=== PATIENT | female | born 1955 | race African-American/Black ===

== ENCOUNTER 2020-02-21 00:16 | Outpatient (CLI) | payer OTHER, SELFPAY ==
[2020-02-21 17:43] LABS: SARS-CoV-2 RNA PCR Negative
== END 2020-02-21 00:17 | disposition home or self-care (01) ==
LOC: ANHCOVIDDT 00:16
PROVIDERS: PCP Family Medicine; Visit Provider Internal Medicine Gastroenterology
DX: Z01.818 Encounter for other preprocedural examination (principal); Z11.59 Encounter for screening for other viral diseases
CPT/HCPCS: 87635; C9803; U0003

== ENCOUNTER 2020-02-23 00:48 | Day surgery (SDC) | payer OTHER, SELFPAY ==
[2020-02-16 12:58] VITALS: BMI 38.8
[2020-02-23 06:20] VITALS: BMI 12.9
[2020-02-23 06:27] VITALS: BP 140/74; PULSE 68; RESP 20; TEMP 36.3; O2SAT 100
[2020-02-23] MEDS: LACTATED RINGERS 1,000 ML 150 ML IV CONT (06:50)
[2020-02-23] MEDS: AMPICILLIN 2 GM/NS 100 ML 2 GM/100 ML BAG IVPB (06:51)
--- NOTE | 2020-02-23 06:55 | P.PNAN_ITS ---
Anes - Initial Pre Proc Eval Procedure: Operation Date: 02/23/20 07:30 Proposed Procedures p Screening Colonoscopy - Nash Guardado MD Date/Time: 02/23/20 06:55 Surgeon: Nash Guardado MD Pre Op Diagnosis: Neoplasm Screening Patient Data Age: 64 Gender: F Height: 1.73 m Weight: 38.8 kg Last Vital Signs Temp 36.3 C L 02/23/20 06:27 Pulse 68 02/23/20 06:27 Resp 20 02/23/20 06:27 BP 140/74 02/23/20 06:27 Pulse Ox 100 02/23/20 06:27 Allergies Allergy/AdvReac Type Severity Reaction Status Date / Time olmesartan Allergy Intermediate Chills Verified 02/23/20 06:24 metronidazole AdvReac Severe GI Verified 02/23/20 06:24 UPSET---N/V METRONIDAZOLE HCL AdvReac Severe GI Uncoded 02/23/20 06:24 UPSET--N/V Home Medications Medication Instructions Recorded Confirmed Type acetaminophen [Tylenol] 325 mg PO ONCE PRN 02/16/20 02/23/20 History amlodipine 10 mg PO DAILY 02/16/20 02/23/20 History baclofen 10 mg PO TID PRN 02/16/20 02/23/20 History ergocalciferol (vitamin D2) 1,250 mcg PO [id number] 02/16/20 02/23/20 History nebivolol [Bystolic] 5 mg PO DAILY 02/16/20 02/23/20 History Patient hx anesthesia problems: none Family hx anesthesia problems: none [facility] Family History Family History (Updated 05/17/14 @ 07:13 by DOCTOR UNKNOWN) Grandparent Hypertension Mother Hypertension Family history of osteoarthritis Social History Social History Smoking status: Never smoker Alcohol intake: current Anes - Eval Final PreProcedure Day of Procedure 02/23/20 06:55 Informed Consent: The patient's anesthetic plan and its attendant risks and benefits were discussed with the patient/family/POA. Questions were solicited and answers provided to the satisfaction of the patient/family/POA.
--- NOTE | 2020-02-23 06:59 | P.HP_ITS ---
History of Present Illness History of Present Illness Consent: Risks, benefits, and alternatives have been discussed and questions answered. Patient agrees to proceed with procedure. Chief complaint: Neoplasm Screening Narrative: Eduin Olivera is a 64 year old female Here for colon cancer screening. She has had polyps removed in the past [facility] Family History Family History Grandparent Hypertension Mother Hypertension Family history of osteoarthritis Social History Social History Smoking status: Never smoker Alcohol intake: current Meds Home Medications and Allergies Home Medications Medication Instructions Recorded Confirmed Type acetaminophen [Tylenol] 325 mg PO ONCE PRN 02/16/20 02/23/20 History amlodipine 10 mg PO DAILY 02/16/20 02/23/20 History baclofen 10 mg PO TID PRN 02/16/20 02/23/20 History ergocalciferol (vitamin D2) 1,250 mcg PO [id number] 02/16/20 02/23/20 History nebivolol [Bystolic] 5 mg PO DAILY 02/16/20 02/23/20 History Allergies Allergy/AdvReac Type Severity Reaction Status Date / Time olmesartan Allergy Intermediate Chills Verified 02/23/20 06:24 metronidazole AdvReac Severe GI Verified 02/23/20 06:24 UPSET---N/V METRONIDAZOLE HCL AdvReac Severe GI Uncoded 02/23/20 06:24 UPSET--N/V Vital Signs Vital Signs - 24 hr 02/23/20 06:27 Temperature 36.3 C L Pulse Rate 68 Respiratory Rate 20 Blood Pressure 140/74 Pulse Oximetry 100 Exam Resp: Auscultation: clear to auscultation bilaterally Cardio: Rate: regular rate Rhythm: regular rhythm GI: GI Palp: Yes Soft to palpation and No Tenderness to palpation present (GI) Assessment and Plan Assessment and plan (1) Personal history of colonic polyps: Code(s): Z86.010 - Personal history of colonic polyps Status: Acute Assessment and Plan: Colonoscopy with possible biopsy or polypectomy or cautery or injection of substances.
[2020-02-23 07:49] VITALS: BP 96/54; PULSE 69; RESP 22; O2SAT 100
[2020-02-23 07:59] VITALS: BP 94/57; PULSE 65; RESP 21; O2SAT 98
[2020-02-23 08:09] VITALS: BP 109/61; PULSE 65; RESP 19; O2SAT 99
== END 2020-02-23 08:22 | disposition home or self-care (01) ==
PROVIDERS: PCP Family Medicine; Visit Provider Internal Medicine Gastroenterology
PROC: 0DJD8ZZ Inspection of Lower Intestinal Tract, Via Natural or Artificial Opening Endoscopic (ICD-10-PCS; CPT 45378; principal; 2020-02-23 07:30)
DX: Z12.11 Encounter for screening for malignant neoplasm of colon (principal); K57.30 Diverticulosis of large intestine without perforation or abscess without bleeding; Z86.010 Personal history of colon polyps
CPT/HCPCS: 45378; J0290; J2001; J2704; J7120

== ENCOUNTER 2020-10-30 14:19 | Outpatient (CLI) | payer OTHER, SELFPAY ==
--- NOTE | ~2020-10-30 | MM_ITS ---
EXAMINATION: MM screening [facility] BI w meño HISTORY: Screening mammogram TECHNIQUE: Craniocaudal and mediolateral oblique 3-D tomosynthesis images were obtained and synthetic 2-D images were generated. CAD analysis was submitted and interpreted. COMPARISON: 09/02/2019, 07/21/2018, 07/13/2017, 06/19/2014 bilateral digital screening mammogram examin ations BREAST PARENCHYMAL COMPOSITION: There are scattered areas of fibroglandular density. FINDINGS: There is a biopsy marker on the left; history of prior benign left breast biopsy. There is no evidence of suspicious mass, calcification, or architectural distortion to suggest malignancy in e ither breast. There has been no suspicious interval change. IMPRESSION: 1. No mammographic evidence of malignancy. 2. Recommend routine screening mammography in one year. BI-RADS Category 1: Negative Reviewed, dictated and finalized at location A. R TENDER
== END 2020-10-30 14:20 | disposition home or self-care (01) ==
LOC: ANHIMG 14:21
PROVIDERS: Family Provider Family Medicine; PCP Family Medicine; Visit Provider Obstetrics & Gynecology
DX: Z12.31 Encounter for screening mammogram for malignant neoplasm of breast (principal)
CPT/HCPCS: 77063; 77067

== ENCOUNTER 2020-11-16 07:11 | Outpatient (CLI) | payer OTHER, SELFPAY ==
[2020-11-16 07:53] LABS: Hematocrit 37.9 % (37.0-47.0); Hemoglobin 11.5 g/dL (12.0-15.0); Mean Corpuscular HGB Conc 30.3 g/dl (32-36); Mean Corpuscular Hemoglobin 27.7 pg (26-34); Mean Corpuscular Volume 91.3 fl (80-100); Mean Platelet Volume 10.2 fl (7.4-10.4); Platelet Count Result 270 k/mm3 (150-375); Red Blood Count 4.15 M/mm3 (4.2-5.4); Red Cell Distribution Width 13.1 % (11.5-14.5); White Blood Count 6.3 K/mm3 (4.5-10.0)
[2020-11-16 08:03] LABS: Anion Gap 5 mmol/L (8-16); Blood Urea Nitrogen 20 mg/dL (7-17); Calcium 8.9 mg/dL (8.4-10.2); Carbon Dioxide 27 mmol/L (22-30); Chloride 111 mmol/L (98-107); Cholesterol 198 mg/dL (0-200); Estimated Glomerular Filt Rate 46; Glucose 111 mg/dL (65-105); HDL Direct 46 mg/dL; Potassium 4.8 mmol/L (3.4-5.0); Sodium 143 mmol/L (137-145); Triglycerides 108 mg/dL (<150)
[2020-11-16 08:14] LABS: LDL Cholesterol Direct 105 mg/dL
[2020-11-16 08:37] LABS: Vitamin D 25 Hydroxy 35.1 ng/mL
== END 2020-11-16 07:12 | disposition home or self-care (01) ==
LOC: ANHLAB 07:13
PROVIDERS: PCP Family Medicine; Visit Provider Family Medicine
DX: N18.31 Chronic kidney disease, stage 3a (principal); E55.9 Vitamin D deficiency, unspecified; E78.2 Mixed hyperlipidemia; Z13.220 Encounter for screening for lipoid disorders
CPT/HCPCS: 36415; 80048; 80061; 82306; 85027

== ENCOUNTER 2020-12-21 06:54 | Outpatient (CLI) | payer OTHER, SELFPAY ==
[2020-12-21 07:32] LABS: Anion Gap 6 mmol/L (8-16); Blood Urea Nitrogen 20 mg/dL (7-17); Calcium 9.4 mg/dL (8.4-10.2); Carbon Dioxide 28 mmol/L (22-30); Chloride 110 mmol/L (98-107); Estimated Glomerular Filt Rate 55; Glucose 104 mg/dL (65-105); Hematocrit 38.1 % (37.0-47.0); Hemoglobin 11.7 g/dL (12.0-15.0); Mean Corpuscular HGB Conc 30.7 g/dl (32-36); Mean Corpuscular Hemoglobin 27.9 pg (26-34); Mean Corpuscular Volume 90.9 fl (80-100); Mean Platelet Volume 10.5 fl (7.4-10.4); Platelet Count Result 268 k/mm3 (150-375); Potassium 3.9 mmol/L (3.4-5.0); Red Blood Count 4.19 M/mm3 (4.2-5.4); Sodium 144 mmol/L (137-145); White Blood Count 6.8 K/mm3 (4.5-10.0)
[2020-12-21 07:37] LABS: Hemoglobin A1C 5.3 % (<5.7)
== END 2020-12-21 06:55 | disposition home or self-care (01) ==
PROVIDERS: PCP Family Medicine; Visit Provider Physician Assistant Medical
DX: R73.09 Other abnormal glucose (principal); N18.31 Chronic kidney disease, stage 3a; D64.9 Anemia, unspecified
CPT/HCPCS: 36415; 80048; 83036; 85027

== ENCOUNTER 2020-12-25 14:03 | Outpatient (CLI) | payer OTHER, SELFPAY ==
[2020-12-25 15:55] LABS: Iron 48 ug/dL (37-170)
[2020-12-25 16:04] LABS: Percent Iron Saturation 20 % (20-50)
== END 2020-12-25 14:04 | disposition home or self-care (01) ==
PROVIDERS: PCP Family Medicine; Visit Provider Physician Assistant Medical
DX: D64.9 Anemia, unspecified (principal)
CPT/HCPCS: 36415; 83540; 83550

== ENCOUNTER 2021-02-19 09:11 | Outpatient (CLI) | payer OTHER, SELFPAY ==
[2021-02-19 10:50] LABS: Erythrocyte Sedimentation Rate 22 mm/hr (0-20)
== END 2021-02-19 09:12 | disposition home or self-care (01) ==
PROVIDERS: PCP Family Medicine; Visit Provider Family Medicine
DX: M47.12 Other spondylosis with myelopathy, cervical region (principal)
CPT/HCPCS: 36415; 85652; 86038; 86140

== ENCOUNTER 2021-02-25 10:30 | Outpatient (CLI) | payer OTHER, SELFPAY ==
[2021-02-25 11:27] LABS: Rheumatoid Factor < 8.6 IU/ML (<12)
== END 2021-02-25 10:31 | disposition home or self-care (01) ==
PROVIDERS: PCP Family Medicine; Visit Provider Family Medicine
DX: M19.90 Unspecified osteoarthritis, unspecified site (principal)
CPT/HCPCS: 36415; 86430

== ENCOUNTER 2021-03-10 10:15 | Emergency (ER) | payer OTHER, SELFPAY ==
[2021-03-10 10:25] VITALS: BP 149/77; PULSE 69; RESP 16; TEMP 36; O2SAT 98
--- NOTE | 2021-03-10 10:46 | ED.URI ---
HPI - URI/Sore Throat General Chief Complaint: Upper Respiratory Infection Stated Complaint: Headache,Dizzy Time Seen by Provider: 03/10/21 10:37 Source: patient and RN notes reviewed Mode of arrival: ambulatory Limitations: no limitations History of Present Illness HPI Narrative: 65-year-old female presents to the [facility] with complaints of temporal/ frontal headache, intermittent dizziness for the last week. States it sometimes feels like her head is swimming. Reports fullness to bilateral ears. Drainage in the back of her throat. Moves all extremities equally. Facial symmetry noted. Denies fevers. Has a history of chronic back pain, hypertension, vitamin D deficiency, seasonal allergies Related Data Home Medications Medication Instructions Recorded Confirmed acetaminophen [Tylenol] 325 mg PO ONCE PRN 02/16/20 03/10/21 cholecalciferol (vitamin D3) 1,250 1,250 mcg PO .every 2 weeks cap 11/11/20 03/10/21 mcg (50,000 unit) capsule Allergies Allergy/AdvReac Type Severity Reaction Status Date / Time olmesartan Allergy Intermediate Chills Verified 03/10/21 10:46 metronidazole AdvReac Severe GI Verified 03/10/21 10:46 UPSET---N/V Review of Systems Review of Systems: All systems reviewed & are unremarkable except as noted in HPI and below Constitutional: Constitutional: Reports no additional constitutional complaints, Denies chills and Denies fever(s) Eyes: Eyes: Reports as per HPI, Reports change in vision (Intermittent blurry vision for 1 week) and Denies photophobia ENT: Reports as per HPI, Denies dizziness and Reports nasal congestion Cardiovascular: Cardiovascular: Reports no additional cardiovascular complaints and Denies chest pain Respiratory: Respiratory: Reports no additional respiratory complaints, Reports cough and Denies dyspnea Gastrointestinal: Gastrointestinal: Reports no additional gastrointestinal complaints, Denies abdominal pain, Denies nausea and Denies vomiting Musculoskeletal: Musculoskeletal: Reports no additional musculoskeletal complaints, Denies back pain, Denies myalgias and Denies arthralgias Integumentary/Breasts: Skin/Breast: Reports system reviewed and no additional complaints, except as docu and Denies rash Neurologic: Reports as per HPI, Denies dizziness, Denies syncope, Reports headache(s), Denies focal weakness and Denies numbness Psychiatric: Psychiatric: Reports no additional psychiatric complaints Allergic/Immunologic: Allergic/Immunologic: Reports no additional allergic/immunologic complaints, Denies lip swelling, Denies throat swelling, Denies tongue swelling and Denies wheezing PMFSH Past Medical History Medical History (Updated 03/10/21 @ 15:56 by Steffanie Mc) Anemia BMI 37.0-37.9, adult Hypertension Inflammatory arthritis Vitamin D deficiency Family History Family History Grandparent Hypertension Mother Hypertension Family history of osteoarthritis Social History Social History Alcohol intake: current Comments At the time of my signature, I reviewed and agree with the nursing past medical, surgical, social, and family history. There is no relevant family history pertinent to the patient complaint. Exam Const: General: healthy appearing, no acute distress and alert; No confusion Nutritional Appearance: well nourished and obese Orientation/consciousness: patient oriented x3 Limitations: no limitations HENMT: Head: normal to inspection Ears: hearing grossly normal bilaterally, external ears normal, EAC's normal, mastoids normal, no periauricular adenopathy and TM abnormal with fluid behind the TM bilateral; not erythematous and with no loss of landmarks General nose exam: Normal external nose present and Abnormal mucous membranes and turbinates present boggy; not erythematous Face and sinus: normal facial exam, face symmetric and sinus tendern
== END 2021-03-10 11:01 | disposition home or self-care (01) ==
PROVIDERS: Emergency Provider Nurse Practitioner; PCP Family Medicine
DX: H65.03 Acute serous otitis media, bilateral (principal); I10 Essential (primary) hypertension
CPT/HCPCS: 99213; G0463

== ENCOUNTER 2021-03-19 13:18 | Outpatient (CLI) | payer OTHER, SELFPAY ==
[2021-03-19 14:03] LABS: Basophils Percent Auto 0.5 % (0.2-1.2); Eosinophils Absolute Auto 0.1 K/mm3 (0-0.3); Eosinophils Percent Auto 1.5 % (0-4.4); Hematocrit 39.3 % (37.0-47.0); Immature Granulocyte Absolute 0.07 K/mm3 (0.00-0.031); Immature Granulocyte Percent A 0.8 % (0-0.5); Lymphocytes Absolute Auto 2.45 K/mm3 (0.9-3.2); Lymphocytes Percent Auto 29.1 % (18.3-44.2); Mean Corpuscular HGB Conc 30.5 g/dl (32-36); Mean Corpuscular Hemoglobin 27.9 pg (26-34); Mean Corpuscular Volume 91.4 fl (80-100); Mean Platelet Volume 9.8 fl (7.4-10.4); Monocytes Absolute Auto 0.6 K/mm3 (0.1-0.6); Monocytes Percent Auto 7.5 % (2.6-8.5); Neutrophils Absolute Auto 5.1 K/mm3 (1.3-6.7); Neutrophils Percent Auto 60.6 % (45.5-73.1); Platelet Count Result 295 k/mm3 (150-375); Red Cell Distribution Width 13.8 % (11.5-14.5); White Blood Count 8.4 K/mm3 (4.5-10.0)
[2021-03-19 14:32] LABS: Iron 88 ug/dL (37-170)
[2021-03-19 14:41] LABS: Percent Iron Saturation 36 % (20-50)
== END 2021-03-19 13:19 | disposition home or self-care (01) ==
LOC: ANHLAB 13:20
PROVIDERS: PCP Family Medicine; Visit Provider Nurse Practitioner Family
DX: D64.9 Anemia, unspecified (principal)
CPT/HCPCS: 36415; 82728; 83540; 83550; 85025

== ENCOUNTER 2021-07-09 11:56 | Outpatient (CLI) | payer OTHER, SELFPAY ==
--- NOTE | ~2021-07-09 | XR_ITS ---
EXAMINATION: XR lumbar spine 2-3V DATE: 07/09/2021 12:32 INDICATION: Lumbar radiculopathy TECHNIQUE: Anteroposterior and lateral views of the lumbar spine, and cone-down lateral view of the l umbosacral junction were obtained. COMPARISON: MRI, 12/19/2015 FINDINGS: There is no fracture, dislocation, or subluxation. The vertebral body heights are normal. T here is mild loss of intervertebral disc space height at L3-4, L4-5, and L5-S1. Small degenerative os teophytes project from the anterior endplates of multiple vertebral bodies. IMPRESSION: 1. Mild lumbar spondylosis without acute findings or significant interval change. Reviewed, dictated and finalized at location A. IMPRESSION: 1. Mild lumbar spondylosis without acute findings or significant interval sherri bauer
--- NOTE | ~2021-07-09 | XR_ITS ---
EXAMINATION:XR_CERV2-3V_CR DATE: 07/09/2021 12:32 INDICATION: Neck pain TECHNIQUE: AP, lateral, and odontoid views of the cervical spine are provided. COMPARISON: 06/09/2017 FINDINGS: Alignment is normal. There is reversal of normal cervical lordosis. The odontoid is intact. No fracture is identified. The vertebral body heights are normal. There is moderate to severe loss o f intervertebral disc space height at C3-4 and C4-5. Prevertebral soft tissues are normal. IMPRESSION: 1. Moderate cervical spondylosis without acute findings or significant interval change. Reviewed, dictated and finalized at location A.
== END 2021-07-09 11:57 | disposition home or self-care (01) ==
LOC: ANHIMG 12:08
PROVIDERS: PCP Family Medicine; Visit Provider Nurse Practitioner Family
DX: M51.36 Other intervertebral disc degeneration, lumbar region (principal); M47.817 Spondylosis without myelopathy or radiculopathy, lumbosacral region; M47.812 Spondylosis without myelopathy or radiculopathy, cervical region
CPT/HCPCS: 72040; 72100

== ENCOUNTER 2021-12-24 13:38 | Outpatient (CLI) | payer MEDICARE, SELFPAY ==
--- NOTE | ~2021-12-24 | MM_ITS ---
EXAMINATION: MM screening [facility] BI w meño HISTORY: Screening TECHNIQUE: Craniocaudal and mediolateral oblique 3-D tomosynthesis images were obtained and synthetic 2-D images were generated. CAD analysis was submitted and interpreted. COMPARISON: Comparison to multiple prior studies sequentially, with oldest reviewed study dated 05/2015. BREAST PARENCHYMAL COMPOSITION: There are scattered areas of fibroglandular density. FINDINGS: There is no evidence of suspicious mass, calcification, or architectural distortion to sugg est malignancy in either breast. There has been no suspicious interval change. IMPRESSION: 1. No mammographic evidence of malignancy. 2. Recommend routine screening mammography in one year. BI-RADS Category 1: Negative Reviewed, dictated and finalized at location A.
== END 2021-12-24 13:39 | disposition home or self-care (01) ==
LOC: ANHIMG 13:41
PROVIDERS: PCP Family Medicine; Visit Provider Obstetrics & Gynecology Gynecology
DX: Z12.31 Encounter for screening mammogram for malignant neoplasm of breast (principal)
CPT/HCPCS: 77063; 77067

== ENCOUNTER 2023-07-27 17:28 | Outpatient (CLI) | payer MEDICARE, SELFPAY ==
--- NOTE | ~2023-07-27 | XR_ITS ---
Right Knee Technique: AP, lateral, and sunrise views were obtained. Clinical History: Pain Findings: No fracture or dislocation is seen. Right knee arthroplasty is in place, without hardware c omplication.. Soft tissues are unremarkable. No joint effusion is seen. Impression: No acute abnormality. Right knee arthroplasty in place. Reviewed, dictated and finalized at location M. AL MACHINE OPERATOR Impression: No acute abnormality. Right knee arthroplasty in place.
[2023-07-27 17:47] LABS: Basophils Absolute Auto 0.1 K/mm3 (0.0-0.1); Basophils Percent Auto 0.8 % (0.2-1.2); Eosinophils Absolute Auto 0.2 K/mm3 (0-0.3); Eosinophils Percent Auto 3.2 % (0-4.4); Hematocrit 38.4 % (37.0-47.0); Hemoglobin 11.4 g/dL (12.0-15.0); Immature Granulocyte Absolute 0.03 K/mm3 (0.00-0.031); Immature Granulocyte Percent A 0.4 % (0-0.5); Lymphocytes Absolute Auto 2.61 K/mm3 (0.9-3.2); Lymphocytes Percent Auto 34.7 % (18.3-44.2); Mean Corpuscular HGB Conc 29.7 g/dl (32-36); Mean Corpuscular Volume 94.3 fl (80-100); Mean Platelet Volume 10.2 fl (7.4-10.4); Monocytes Absolute Auto 0.5 K/mm3 (0.1-0.6); Monocytes Percent Auto 6.3 % (2.6-8.5); Neutrophils Absolute Auto 4.1 K/mm3 (1.3-6.7); Neutrophils Percent Auto 54.6 % (45.5-73.1); Platelet Count Result 256 k/mm3 (150-375); Red Blood Count 4.07 M/mm3 (4.2-5.4); Red Cell Distribution Width 12.8 % (11.5-14.5); White Blood Count 7.5 K/mm3 (4.5-10.0)
[2023-07-27 18:04] LABS: Hypochromasia 1+ (NORMAL); Platelet Estimate Adequate (Adequate); Schistocytes None Seen (NORMAL); Stomatocytes 1+ (NORMAL)
[2023-07-27 18:46] LABS: Iron 76 ug/dL (37-170)
[2023-07-27 18:55] LABS: Percent Iron Saturation 34 % (20-50)
[2023-07-27 18:56] LABS: Vitamin D 25 Hydroxy 27.4 ng/mL
== END 2023-07-27 17:29 | disposition home or self-care (01) ==
PROVIDERS: PCP Family Medicine; Visit Provider Family Medicine
DX: D50.8 Other iron deficiency anemias (principal); R79.89 Other specified abnormal findings of blood chemistry; Z96.651 Presence of right artificial knee joint
CPT/HCPCS: 36415; 73564; 82306; 82607; 83540; 83550; 85025

== ENCOUNTER 2023-12-08 09:52 | Emergency (ER) | payer MEDICARE, SELFPAY ==
[2023-12-08 10:10] VITALS: BP 151/85; PULSE 71; RESP 18; TEMP 36.2; O2SAT 100
--- NOTE | 2023-12-08 10:37 | ED.URI ---
HPI - URI/Sore Throat General Chief Complaint: Upper Respiratory Infection Stated Complaint: Dizziness/Sinus Time Seen by Provider: 12/08/23 10:37 Source: patient Mode of arrival: ambulatory Limitations: no limitations History of Present Illness HPI Narrative: 68-year-old female presents with complaint of sinus pressure around top of nose and under eyes, nasal congestion, nasal drainage for 3 days. Afebrile. Started taking Sudafed to treat congestion yesterday. Reports that she is having nausea and dizziness lasting just a few seconds when standing. No vision changes. Denies nausea vomiting. Denies cough. No chest pain or shortness of breath. All systems reviewed and negative except as noted above. Related Data Allergies Allergy/AdvReac Type Severity Reaction Status Date / Time olmesartan Allergy Intermediate Chills Verified 12/08/23 10:10 metronidazole AdvReac Severe GI Verified 12/08/23 10:10 UPSET---N/V Review of Systems Review of Systems: CONSTITUTIONAL: Denies fever, chills, or sweats. EYES: Denies visual changes, redness, or discharge. ENT: Reports rhinorrhea, congestion, sinus pressure. Denies sore throat, or otalgia. CARDIOVASCULAR: Denies chest pain, palpitations, or edema. RESPIRATORY: Denies cough or dyspnea. GASTROINTESTINAL: Denies abdominal pain, nausea, vomiting, or diarrhea. GENITOURINARY: Denies dysuria or hematuria. SKIN: Denies rash or itching. MUSCULOSKELETAL: Denies back pain, joint pain, or myalgia. NEUROLOGIC: Denies headache, numbness, or weakness. reports dizziness Sometimes when standing lasting few seconds. PSYCHIATRIC: Denies anxiety or depression. All other systems reviewed are negative, except as documented in HPI. [facility] Past Medical History Medical History (Updated 12/08/23 @ 10:46 by Alanis Hansen NP) Anemia BMI 37.0-37.9, adult BMI 38.0-38.9,adult BMI 39.0-39.9,adult BMI 40.0-44.9, adult BMI over 35 Foot pain, left Hypertension Inflammatory arthritis Low vitamin D level Right knee pain Right lateral epicondylitis Shoulder impingement Trapezius muscle spasm Vitamin D deficiency Surgical History Surgical History H/O knee surgery H/O: hysterectomy Family History Family History Grandparent Hypertension Mother Hypertension Family history of osteoarthritis Father Sibling No problems noted. Social History Social History Smoking status: Never smoker Second hand tobacco smoke exposure: Yes Alcohol intake: current Substance use: never Substance use type: does not use Lack of Transportation: YES Lack of Food: Never True Current Housing: I Have Housing Concerned About Future Housing: No Difficulty Paying Gas/Electric Bills: No Difficulty Paying for Meds: No Currently Unemployed: No Education: High School Diploma/GED Difficulty w/ Childcare or Family Care: No Living arrangements: alone Occupation/Education: retired Additional occupation/education comments: [id number] 27 years. Gender identity (if verbalized by the patient): Female Comments At time of signature, agree with nursing past medical, surgical, social and family history. There is no relevant family history pertinent to the presenting complaint. Exam Narrative: GENERAL: This is a well-nourished, well-developed patient, in no apparent distress. HEAD: normocephalic, atraumatic. EYES: PERRL. Sclera clear/white. Vision is grossly intact. EARS: External ears normal, auditory canals clear and without drainage, Clear fluid to right TM, left TM normal without Erythema or perforation. Hearing grossly intact. NOSE: External nose normal with clear nasal drainage, mild erythema and swelling to bilateral nares with mild nasal/ Sinus congestion. THROAT: Mucous membranes moist,
== END 2023-12-08 10:55 | disposition home or self-care (01) ==
PROVIDERS: Emergency Provider Nurse Practitioner Family; PCP Family Medicine
DX: J01.90 Acute sinusitis, unspecified (principal); H65.01 Acute serous otitis media, right ear; I10 Essential (primary) hypertension; M13.80 Other specified arthritis, unspecified site
CPT/HCPCS: 99213; G0463

== ENCOUNTER 2024-07-04 11:38 | Outpatient (CLI) | payer MEDICARE, SELFPAY ==
--- NOTE | ~2024-07-04 | XR_ITS ---
AP and lateral views of the bilateral hips Clinical history: Pain Findings: No acute fracture or dislocation is seen. Osseous alignment is anatomic. Bilateral hip and SI joint spaces are preserved. Soft tissues are unremarkable. Impression: No significant abnormality is seen. Reviewed, dictated and finalized at location . Impression: No significant abnormality is seen.
== END 2024-07-04 11:39 | disposition home or self-care (01) ==
LOC: ANHIMG 11:43
PROVIDERS: PCP Family Medicine; Visit Provider Family Medicine
DX: M25.551 Pain in right hip (principal); M25.552 Pain in left hip
CPT/HCPCS: 73521

== ENCOUNTER 2024-07-31 10:46 | Outpatient (CLI) | payer MEDICARE, SELFPAY ==
[2024-08-04 14:32] LABS: Erythropoietin (EPO) 14.2 mIU/mL (2.6-18.5)
== END 2024-07-31 10:47 | disposition home or self-care (01) ==
LOC: ANHLAB 10:48
PROVIDERS: PCP Family Medicine; Visit Provider Nurse Practitioner Adult Health
DX: D50.8 Other iron deficiency anemias (principal); R79.89 Other specified abnormal findings of blood chemistry; N18.31 Chronic kidney disease, stage 3a
CPT/HCPCS: 36415; 82668; 82728

== ENCOUNTER 2024-11-21 10:37 | Outpatient (CLI) | payer MEDICARE, SELFPAY ==
[2024-11-21 10:58] LABS: Basophils Percent Auto 0.6 % (0.2-1.2); Eosinophils Absolute Auto 0.1 K/mm3 (0-0.3); Eosinophils Percent Auto 1.7 % (0-4.4); Hematocrit 37.3 % (37.0-47.0); Hemoglobin 11.7 g/dL (12.0-15.0); Immature Granulocyte Absolute 0.03 K/mm3 (0.00-0.031); Immature Granulocyte Percent A 0.4 % (0-0.5); Lymphocytes Absolute Auto 1.66 K/mm3 (0.9-3.2); Lymphocytes Percent Auto 23.9 % (18.3-44.2); Mean Corpuscular HGB Conc 31.4 g/dl (32-36); Mean Corpuscular Hemoglobin 28.7 pg (26-34); Mean Corpuscular Volume 91.6 fl (80-100); Mean Platelet Volume 9.7 fl (7.4-10.4); Monocytes Absolute Auto 0.4 K/mm3 (0.1-0.6); Monocytes Percent Auto 6.2 % (2.6-8.5); Neutrophils Absolute Auto 4.7 K/mm3 (1.3-6.7); Neutrophils Percent Auto 67.2 % (45.5-73.1); Platelet Count Result 249 k/mm3 (150-375); Red Blood Count 4.07 M/mm3 (4.2-5.4); Red Cell Distribution Width 12.6 % (11.5-14.5)
[2024-11-21 14:36] LABS: Iron 67 ug/dL (37-170)
[2024-11-21 14:41] LABS: Alanine Aminotransferase 17 U/L (6-35); Alkaline Phosphatase 138 U/L (38-126); Anion Gap 5 mmol/L (4-12); Aspartate Amino Transferase 23 U/L (14-36); Bilirubin,Total 0.6 mg/dL (0.2-1.3); Blood Urea Nitrogen 21 mg/dL (7-17); Calcium 9.4 mg/dL (8.4-10.2); Carbon Dioxide 29 mmol/L (22-30); Chloride 105 mmol/L (98-107); Estimated Glomerular Filt Rate 36; Glucose 92 mg/dL (65-110); Potassium 4.8 mmol/L (3.4-5.0); Sodium 139 mmol/L (137-145)
[2024-11-21 14:58] LABS: Percent Iron Saturation 28 % (20-50)
[2024-11-21 16:06] LABS: Folic Acid 12.4 ng/mL (2.76->20)
[2024-11-23 13:13] LABS: Soluble Transferrin Receptor 1.15 mg/L (0.76-1.76)
== END 2024-11-21 10:38 | disposition home or self-care (01) ==
LOC: ANHLAB 10:38
PROVIDERS: PCP Family Medicine; Visit Provider Internal Medicine Hematology & Oncology
DX: D64.9 Anemia, unspecified (principal)
CPT/HCPCS: 36415; 80053; 82607; 82728; 82746; 83540; 83550; 83921; 84238; 85025

== ENCOUNTER 2025-05-22 15:59 | Outpatient (CLI) | payer MEDICARE, SELFPAY ==
--- OUTSIDE RECORDS SUMMARY | 2025-05-22 15:54 | XMS_ITS | Encounter Summary ---
Author Organization [facility] Address [address] [place] [address] Phone Care Team Providers Care Credit Collection Specialist Name Role Phone Thomas Eduardo MD Primary Care Provider [phone] Encounter Details Date Type Department Care Team (Late st Contact Info) Description 01/02/2025 Orders Only [facility] Scanning, Provider Social History Tobacco Use Types Packs/Day Years Used Date Smoking Tobacco: Never Smokeless Tobacco: Never Alcohol Use Standard Drinks/Week Comments No 0 (1 standard drink = 0.6 oz pur e alcohol) Comments No Sex and Gender Information Value Date Recorded Sex Assigned at Not on file Legal Sex 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
--- OUTSIDE RECORDS SUMMARY | 2025-05-22 15:54 | XMS_ITS | Clinical Summary ---
Author Organization [facility] Address [address] [place] [address] Care Team Providers Care Fryer Operator Name Role Phone Thomas Eduardo MD Primary Care Provider [phone] Allergies Active Allergy Reactions Criticality Noted Date Comments Metronidazole Vomiting Low 05/26/2019 Medications amLODIPine (NORVASC) 10 mg tablet Take 1 tablet (10 mg total) by mouth daily Active BACLOFEN ORAL Take 15 mg by mouth nightly. Active ergocalciferol, vitamin D2, (VITAMIN D2 ORAL) Take 50,000 Units by mouth every 14 (fourteen) days Active nebivolol (BYSTOLIC) 5 mg tablet Take 5 mg by mouth daily Active metoprolol XL (TOPROL-XL) 100 mg 24 hr tablet Take 1 tablet (100 mg total) by mouth daily Active amoxicillin 500 mg tablet/capsule Take 1 tablet/caps ule (500 mg total) by mouth 2 times daily Active Active Problems Problem Noted Date Diagnosed Date Primary osteoarthritis of right knee 06/01/2019 Spondylolysis of cervical region 02/07/2018 Neck pain 02/04/2018 Chronic kidney disease, stage 3 (moderate) 06/27 Essential (primary) hypertension 06/27/2012 Pain in joint 06/27/2012 Knee pain 12/01/2010 ROMEL on CPAP HTN (hypertension) Spinal stenosis CKD (chronic kidney disease) Osteoarthritis of left knee Surgical History Surgery Date Site/Laterality Comments PARTIAL KNEE ARTHROPLASTY 09/20/2013 - 09/19/2014 Left CHOLECYSTECTOMY HYSTERECTOMY 09/20/2001 - 09/19/2002 REPLACEMENT TOTAL KNEE 11/18/2018 - 12/18/2018 Left SECTION MENISCUS SURGERY 09/20/2014 - 09/19/2015 Right Medical History Medical History Date Comments ROMEL on CPAP HTN (hypertension) Spinal stenosis CKD (chronic kidney disease) Osteoarthritis of left knee Anesthesia Denies any perso nal or family of anesthesia complications Family History Medical History Relation Name Comments Arthritis Mother Hypertension Mother Living age 83 Relation Name Status Comments Father Mother Alive Social History Tobacco Use Types Packs/Day Years Used Date Smoking Tobacco: Never Smokeless Tobacco: Never Tobacco Cessation:Counseling Given: Not Answered Alcohol Use Standard Drinks/Week Comments No 0 (1 standard drink = 0.6 oz pur e alcohol) Comments No Sex and Gender Information Value Date Recorded Sex Assigned at Not on file Legal Sex Female 12:29 AM RESIDENTIAL PROPERTY TAX APPRAISER Gender Identity Not on file Sexual Orientation Not on file Obstetrics History Last Filed Vital Signs Vital Sign Reading Time Taken Comments Blood Pressure 124/81 01/24/2025 8:18 AM CDT Pulse 75 01/24/2025 8:18 AM CDT Temperature 36.5 C (97.7 F) 06/07/2019 11:35 AM CDT Respiratory Rate 16 06/07/2019 11:35 AM CDT Oxygen Saturation 97% 06/07/2019 11:35 AM CDT Inhaled Oxygen Concentration - - Weight 122.9 kg (271 lb) 01/24/2025 8:18 AM CDT Height 170.2 cm (5' 7) 01/24/2025 8:18 AM CDT Body Mass Index 42.44 01/24/2025 8:18 AM CDT Plan of Treatment Health Maintenance Due Date Last Done Comments Breast Cancer Screening-Mammogram 1955 Colon Cancer Screening-Colonoscopy 1956 Depression Screening 1956 Fall Risk Assessment 1956 Hepatitis C Screening 1956 Osteoporosis Screening-Bone Density Scan 1956 DTaP/Tdap/Td Vaccine (1 - Tdap) 1967 Hepatitis B Screening 1974 Pneumococcal vaccine 65+ (1 of 1 - PCV) 2006 Zoster Vaccine (1 of 2) 2006 Well Visit 65+ 2021 Covid-19 Vaccine (5 - 2023-2 5 season) 2024 02/25/2022, 07/08/2021, 12/24/2020, Additional history exists Influenza Vaccine (#1) 2025 Medical Devices Implanted Type Area Chlorinator Operator Device Identifier Shelf Expiration Date Model / Serial / Lot [employer] 6191-1-010 Simplex P Radiopaque Full Dose Cement Bone Sterile - [id number] Implanted:Qty: 1 on 11/25/2018 by Jose Gant MD at [facility] Left: Knee [employer] 02/17/2021 6191-1-010 / / [id number] [employer] 6191-1-010 Simplex P Radiopaque Full Dose Cement Bone Sterile - [id number] Implanted:Qty: 1 on 11/25/2018 by Jose Gant MD at [facility] Left: Knee [employer] 02/17/2021 6191-1-010 / / [id number] [employer] [id number] Attune Cemented Posterior Stabilize Knee Left 6 Narrow Component - [id number] Implanted:Qty: 1 on 11/25/2018 by Jose Gant MD at [facility] Left: Knee [employer] [id number] 09/19/2028 [id number] / / [id number] [employer] [id number] Attune Cement Revision Rotate Platform Knee 6 Baseplate Tibial - [id number] Implanted:Qty: 1 on 11/25/2018 by Jose Gant MD at [facility] Left: Knee [employer] [id number] 01/18/2028 [id number] / / [id number] [employer] [id number] Attune 35mm Medialize Dome Component Patellar - [id number] Implanted:Qty: 1 on 11/25/2018 by Jose Gant MD at [facility] Left: Patella [employer] [id number] 07/20/2023 [id number] / / [id number] [employer] [id number] Attune 12mm Posterior Stabilize Rotate Platform Knee 6 Insert - [id number] Implanted:Qty: 1 on 11/25/2018 by Jose Gant MD at [facility] Left: Patella [employer] [id number] 05/20/2019 [id number] / / [id number] [employer] [id number] Attune 35mm Medialize Dome Component Patellar - [id number] Implanted:Qty: 1 on 06/06/2019 by Jose Gant MD at [facility] Right: Patella [employer] [id number] 03/19/2024 [id number] / / [id number] [employer] [id number] Attune 8mm Cruciate Retaining Rotate Platform Knee 6 Insert - [id number] Implanted:Qty: 1 on 06/06/2019 by Jose Gant MD at [facility] Right: Knee [employer] [id number] 01/17/2023 [id number] / / [id number] [employer] 6191-1-010 Simplex P Radiopaque Full Dose Cement Bone Sterile - [id number] Implanted:Qty: 1 on 06/06/2019 by Jose Gant MD at [facility] Right: Patella [employer] 06/19/2021 6191-1-010 / / [id number] [employer] [id number] Attune Cruciate Retain Cementless Knee Right 6 Narrow Component - [id number] Implanted:Qty: 1 on 06/06/2019 by Jose Gant MD at [facility] Right: Knee [employer] [id number] 02/18/2028 [id number] / / [id number] [employer] [id number] Attune Cementless Rotate Platform Knee 6 Baseplate Tibial - [id number] Implanted:Qty: 1 on 06/06/2019 by Jose Gant MD at [facility] Right: Knee [employer] [id number] 04/19/2028 [id number] / / [id number] Insurance CIGNA AETNA MEDICARE [facility] CIGNA OPEN ACCESS AETNA MEDICARE GOLD Advance Directives For more information, please contact: [phone] * Full Code (Latest Code Status on File) Date Activated Date Inactivated Comments 06/06/2019 12:41 PM 06/07/2019 6:58 PM * Full Code Date Activated Date Inactivated Comments 11/25/2018 2:49 PM 11/26/2018 5:09 PM Care Teams Fryer Operator Relationship Specialty Start Date End Date Thomas Eduardo MD PCP - General 02/10/18
--- OUTSIDE RECORDS SUMMARY | 2025-05-22 15:54 | XMS_ITS | Clinical Summary ---
Author Organization [facility] Address [facility] [place] [address] Care Team Providers Care Bus Escort Name Role Phone Unavailable Primary Care Provider Unavailabl e Social History Tobacco Use Types Packs/Day Years Used Date Smoking Tobacco: Never Assessed Comments Unknown Sex and Gender Information Value Date Recorded Sex Assigned at Not on file Legal Sex Female 6:57 PM CDT Gender Identity Not on file Sexual Orientation Not on file Plan of Treatment Health Maintenance Due Date Last Done Comments Colorectal Cancer Screening Colonoscopy (10 Years) 1956 Hepatitis C 1974 DTaP, Tdap and Td Vaccines ( 1 - Tdap) 1975 Mammogram Screening 1996 Pneumococcal Vaccine: 50+ Ye ars (1 of 1 - PCV) 2006 Zoster Vaccines (1 of 2) 2006 Dexa Scan (General) 2021 COVID-19 Vaccine (2023-2 5 season) 2025 RSV Immunization or 60+ Years (1 - 1-dose 75+ series) 2031 Meningococcal B Vaccine Aged Out No l onger eligible based on patient's age to complete this topic Meningococcal Vaccine Aged Out No christiane odell eligible based on patient's age to complete this topic RSV Immunizations Under 20 Months Aged Out No longer eligible based on patient's age to complete this topic
--- OUTSIDE RECORDS SUMMARY | 2025-05-22 15:54 | XMS_ITS | Clinical Summary ---
Author Organization [facility] Address [address] [place] [address] Phone Care Team Providers Care Nurse First Assist Name Role Phone Unavailable Primary Care Provider Unavailabl e Medications olmesartan (BENICAR) 40 MG tablet 1 daily 5 07/27/2012 Active simvastatin (ZOCOR) 20 MG tablet 1 daily 3 10/05/2013 Active biotin 300 MCG tablet tablet 07/28/2012 Activ e aspirin (ASPIR-LOW) 81 MG EC tablet 05/31/2013 Active metoprolol tartrate (LOPRESSOR) 100 MG tablet 1 bid 07/28/2012 Active triamterene-hydr oCHLOROthiazide (MAXZIDE-25) 37.5-25 MG per tablet 1 dialy 5 07/27/2012 Active traMADol-acetami nophen (ULTRACET) 37.5-325 MG per tablet 03/07/2014 Active olmesartan (BENICAR) 40 MG tablet TAKE ONE TABLET BY MOUTH EVERY DAY 4 05/14/2013 Active Active Problems Problem Noted Date Diagnosed Date Pain in joint 06/27/2012 Chronic kidney disease, stage 3 (moderate) 06/27 Essential (primary) hypertension 06/27/2012 Social History Tobacco Use Types Packs/Day Years Used Date Smoking Tobacco: Never Assessed Comments Unknown Sex and Gender Information Value Date Recorded Sex Assigned at Not on file Legal Sex Female 8:45 AM [facility] Gender Identity Not on file Sexual Orientation Not on file Last Filed Vital Signs Vital Sign Reading Time Taken Comments Blood Pressure 112/60 03/07/2014 12:01 AM CDT Pulse 60 03/07/2014 12:01 AM CDT Temperature 36.3 C (97.4 F) 03/07/2014 12:01 AM CDT Respiratory Rate - - Oxygen Saturation - - Inhaled Oxygen Concentration - - Weight 113 kg (250 lb) 03/07/2014 12:01 AM CDT Height 175.3 cm (5' 9) 03/07/2014 12:01 AM CDT Body Mass Index 36.92 03/07/2014 12:01 AM CDT Plan of Treatment Not on file
--- OUTSIDE RECORDS SUMMARY | 2025-05-22 15:54 | XMS_ITS | Clinical Summary ---
Author Organization [facility] [employer] Address [address] [place] [address] Care Team Providers Care Supervisor Type Photography Name Role Phone Thomas Eduardo MD Primary Care Provider [phone] Source Comments [facility] [employer],non-[facility] Affiliates and Associated Physician Practices is amultiple site organization consisting of ambulatory clinics and hospital sitesin [place], [place], [place] and [place]. This disclosure is being madepursuant to the Care Everywhere program and may not contain all information available regarding this patient. Last updated 18.[facility] [employer] Social History Tobacco Use Types Packs/Day Years Used Date Smoking Tobacco: Never Assessed Comments Unknown Sex and Gender Information Value Date Recorded Sex Assigned at Not on file Legal Sex Female 4:18 PM ENVIRONMENT ARTIST Gender Identity Not on file Sexual Orientation Not on file Last Filed Vital Signs Vital Sign Reading Time Taken Comments Blood Pressure 137/82 08/19/2016 10:40 AM ENVIRONMENT ARTIST Pulse 88 08/19/2016 10:40 AM ENVIRONMENT ARTIST Temperature 37.1 C (98.7 F) 09/04/2015 9:46 AM ENVIRONMENT ARTIST Respiratory Rate 16 08/19/2016 10:40 AM ENVIRONMENT ARTIST Oxygen Saturation - - Inhaled Oxygen Concentration - - Weight 115.7 kg (255 lb) 11/05/2016 2:23 PM ENVIRONMENT ARTIST Height 172.7 cm (5' 8) 11/05/2016 2:23 PM ENVIRONMENT ARTIST Body Mass Index 38.77 11/05/2016 2:23 PM ENVIRONMENT ARTIST Plan of Treatment Health Maintenance Due Date Last Done Comments BONE DENSITY TESTING 1955 COLOGUARD (AGES 45-75) - COL ON CA SCREENING 1956 COLON MONITORING 1956 COLONOSCOPY - COLON CA SCREENING 1956 CT COLONOGRAPHY - COLON CA SCREENING 1956 Colorectal Cancer Screening 1956 FIT - COLON CA SCREENING 1956 FLEX SIG - COLON CA SCREENING 1956 LIPID TESTING 1956 MAMMOGRAM 1956 HEPATITIS C SCREENING 03/26/1974 DTAP/TDAP/TD VACCINES (1 - Tdap) 1975 PNEUMOCOCCAL VACCINE 50+ (1 of 1 - PCV) 2006 ZOSTER VACCINE (1 of 2) 2006 COVID-19 VACCINE (1 - 2023-2 5 season) 2024 DEPRESSION SCREENING 09/20/2024 INFLUENZA VACCINE (#1) 2025 Respiratory Syncytial Virus (RSV) Vaccine Pt: or over 60 yrs (1 - 1-dose 75+ series) 2031 HEPATITIS B VACCINE Aged Out No longe r eligible based on patient's age to complete this topic HIB VACCINE Aged Out No longer eligi ble based on patient's age to complete this topic HPV VACCINE Aged Out No longer eligi ble based on patient's age to complete this topic MENINGOCOCCAL (Group B) VACC INE SHARED DECISION-MAKING Aged Out No longer eligibl e based on patient's age to complete this topic MENINGOCOCCAL GROUPS A/C/Y/W VACCINE Aged Out No longer eligible b ased on patient's age to complete this topic Insurance [facility] [place] Address: [facility] [address] [place] [address] Care Teams Supervisor Type Photography Relationship Specialty Start Date End Date Thomas Eduardo MD [address] [place] [address] PCP - General Family Medicine 11/04/16
--- OUTSIDE RECORDS SUMMARY | 2025-05-22 15:54 | XMS_ITS | Clinical Summary ---
Author Organization [facility] Janneth reyes [facility] Address [address] [place] [address] Care Team Providers Care Combination Operator Name Role Phone Unavailable Primary Care Provider Unavailabl e Allergies Active Allergy Reactions Criticality Noted Date Comments Metronidazole Nausea and Vomiting Low 11/21/2024 Olmesartan Fever Low 11/21/2024 Gets the chills,tingling in feet Medications metoprolol succinate (TOPROL XL) 100 mg Extended Release 24 hour tablet Take 1 Tablet by mouth daily. 09/27/2024 Active baclofen (LIORESAL) 10 mg tablet Take 10 mg by mouth every 12 hours as needed (Muscle Spasms). 10/30/2024 Active amLODIPine (NORVASC) 5 mg tablet Take 1 Tablet by mouth daily. 09/27/2024 Active amoxicillin (AMOXIL) 500 mg Tablet Take 500 mg by mouth every 12 hours. Takes when pt goes to dentist Active Active Problems No known active problems Encounters Date Type Department Care Team Description 04/24/2025 External Device Data [facility] ABSTRACTION Provider, Abstract 04/04/2025 External Device Data [facility] ABSTRACTION Provider, Abstract 04/03/2025 External Device Data [facility] ABSTRACTION Provider, Abstract 03/13/2025 External Device Data [facility] ABSTRACTION Provider, Abstract from Last 3 Months Family History Medical History Relation Name Comments No Known Problems Father No Known Problems Mother No Known Problems Sister Relation Name Status Comments Father Mother Sister Alive Social History Tobacco Use Types Packs/Day Years Used Date Smoking Tobacco: Never Smokeless Tobacco: Never Alcohol Use Standard Drinks/Week Comments Yes 0 (1 standard drink = 0.6 oz pur e alcohol) Occasionally Comments Unknown Sex and Gender Information Value Date Recorded Sex Assigned at Not on file Legal Sex Female 12:03 PM FLOWER ARRANGER Gender Identity Not on file Sexual Orientation Not on file Last Filed Vital Signs Vital Sign Reading Time Taken Comments Blood Pressure 130/80 11/21/2024 10:04 AM FLOWER ARRANGER Pulse 67 11/21/2024 9:59 AM FLOWER ARRANGER Temperature 35.5 C (95.9 F) 11/21/2024 9:59 AM FLOWER ARRANGER Respiratory Rate 16 11/21/2024 9:59 AM FLOWER ARRANGER Oxygen Saturation 97% 11/21/2024 9:59 AM FLOWER ARRANGER Inhaled Oxygen Concentration - - Weight 122.4 kg (269 lb 12.8 oz) 11/21/2024 9:59 AM FLOWER ARRANGER Height 172.7 cm (5' 8) 11/21/2024 9:59 AM FLOWER ARRANGER Body Mass Index 41.02 11/21/2024 9:59 AM FLOWER ARRANGER Plan of Treatment Health Maintenance Due Date Last Done Comments Pre-Diabetes and Diabetes Screening 1956 DTAP/TDAP/TD VACCINES (1 - Tdap) 1975 BREAST CANCER SCREENING 1996 COLORECTAL SCREENING 2001 Colorectal Cancer Screening 2001 FIT-DNA Q 3 years 2001 FIT/FOBT Q 1 year 2001 Flex Sig/CT Colonography Q 5 years 2001 PNEUMOCOCCAL VACCINE 50+ YEARS (1 of 1 - PCV) 03/30/20 06 ZOSTER VACCINE (1 of 2) 2006 RSV VACCINE (60+ or ) (1 - Risk 60-74 years 1-dose series) 2016 OSTEOPOROSIS SCREENING 2021 INFLUENZA VACCINE (#1) 2025 Insurance AETNA O MCR
[2025-05-22 16:22] LABS: Hematocrit 36.2 % (37.0-47.0); Hemoglobin 11.1 g/dL (12.0-15.0); Immature Granulocyte Percent A 0.7 % (0-0.5); Lymphocytes Absolute Auto 2.08 K/mm3 (0.9-3.2); Mean Corpuscular HGB Conc 30.7 g/dl (32-36); Mean Corpuscular Hemoglobin 28.5 pg (26-34); Mean Corpuscular Volume 92.8 fl (80-100); Nucleated Red Blood Cells Absolute Auto 0.000 K/mm3 (0.0-0.012); Nucleated Red Blood Cells Perc 0.0 % (0.0-0.2); Platelet Count Result 260 k/mm3 (150-375); Red Blood Count 3.90 M/mm3 (4.2-5.4); White Blood Count 7.4 K/mm3 (4.5-10.0)
[2025-05-22 16:30] LABS: Anion Gap 5 mmol/L (4-12); Blood Urea Nitrogen 22 mg/dL (7-17); Calcium 9.4 mg/dL (8.4-10.2); Carbon Dioxide 28 mmol/L (22-30); Chloride 105 mmol/L (98-107); Estimated Glomerular Filt Rate 34; Glucose 92 mg/dL (65-110); Potassium 4.3 mmol/L (3.4-5.0); Sodium 138 mmol/L (137-145)
[2025-05-22 16:37] LABS: NT Pro B Type Natriuretic Pept 1070 pg/mL (19.9-100)
== END 2025-05-22 16:00 | disposition home or self-care (01) ==
LOC: ANHLAB 16:00
PROVIDERS: PCP Family Medicine; Visit Provider Physician Assistant Medical
DX: I12.9 Hypertensive chronic kidney disease with stage 1 through stage 4 chronic kidney disease, or unspecified chronic kidney disease (principal); N18.31 Chronic kidney disease, stage 3a; D63.1 Anemia in chronic kidney disease; N28.1 Cyst of kidney, acquired; R25.2 Cramp and spasm; R06.09 Other forms of dyspnea
CPT/HCPCS: 36415; 80048; 83880; 85025

== ENCOUNTER 2025-05-24 07:25 | Outpatient (CLI) | payer MEDICARE, SELFPAY ==
--- OUTSIDE RECORDS SUMMARY | 2024-02-28 09:00 | XMS_ITS ---
Author Organization [facility] Office Address [address] [place] [address] Care Team Providers Care Fish Peddler Name Role Phone Baldomero, Paradise Monique [phone] Encounters Encounter Location Date Provider Diagnosis [facility] [place] [facility] [address] [place] [address] 02/28/2024 Paradise Kaufman Chronic kidney disease, stage 3a N18.31 ; Essential (primary) hypertension I10 ; Cyst of kidney, acquired N28.1 ; Hyperlipidemia, unspecified E78.5 and Secondary hyperparathyroidism, not elsewhere classified E21.1 Assessments Encounter Date Diagnosis (ICD Code) Assessment Notes Treatment Notes Treatment Clinical Notes Section Notes 02/28/2024 Chronic kidney disease, stage 3a (ICD-10 - N18.31) 02/28/2024 Essential (primary) hypertension (ICD-10 - I10) 02/28/2024 Cyst of kidney, acquired (ICD-10 - N28.1) 02/28/2024 Hyperlipidemia, unspecified (ICD-10 - E78.5) 02/28/2024 Secondary hyperparathyroidi sm, not elsewhere classified (ICD-10 - E21.1) Plan Of Treatment No Information Progress Notes * JUAN YANGEDOB:1955 (70 yo F)Acc No.[id number]:02/28/2024 Progress Notes Patient: GEORGE HA Provider: Trisha KAUFMAN M.D :1955 A ge:68 Y S ex:Female Date:02/28/2024 Address:[address] Subjective: * Chief Complaints: * * Medical History: Objective: * Vitals: Assessment: * Assessment: 1. C hronic kidney disease, stage 3a - N18.31 (Primary) 2 . E ssential (primary) hypertension - I10 3 . C yst of kidney, acquired - N28.1 4 . H yperlipidemia, unspecified - E78.5 5 . S econdary hyperparathyroidism, not elsewhere classified - E21.1 Plan: * Treatment: * Billing Information: * Visit Code: 77622 Office Visit, Est Pt., Level 3. * Procedure Codes: * Electronic signature of Barrett Kaufman MD on 05/24/2025 at 07:28 AM CDT Sign off status: Pending * Provider: Trisha KAUFMAN M.D Date: 0 02/28/2024 Generated for Melissa hamm/Avelina/Janet on: 05/24/2025 07:28 AM CDT
--- OUTSIDE RECORDS SUMMARY | 2024-07-31 09:00 | XMS_ITS ---
Author Organization [facility] Office Address [address] [place] [address] Care Team Providers Care Clinical Trial Data Manager Name Role Phone Baldomero, Paradise Unavailable [phone] Encounters Encounter Location Date Provider Diagnosis [facility] [place] [facility] [address] [place], [place] [address] 07/31/2024 Paradise Kaufman Chronic kidney disease, stage 3a N18.31 ; Essential (primary) hypertension I10 ; Hyperlipidemia, unspecified E78.5 and Secondary hyperparathyroidism, not elsewhere classified E21.1 Assessments Encounter Date Diagnosis (ICD Code) Assessment Notes Treatment Notes Treatment Clinical Notes Section Notes 07/31/2024 Chronic kidney disease, stage 3a (ICD-10 - N18.31) 07/31/2024 Essential (primary) hypertension (ICD-10 - I10) 07/31/2024 Hyperlipidemia, unspecified (ICD-10 - E78.5) 07/31/2024 Secondary hyperparathyroidi sm, not elsewhere classified (ICD-10 - E21.1) Plan Of Treatment No Information Progress Notes * CELIA DINOOB:1955 (70 yo F)Acc No.[id number]:07/31/2024 Progress Notes Patient: GEORGE HA Provider: Trisha KAUFMAN M.D :1955 A ge:69 Y S ex:Female Date:07/31/2024 Address:[address] Subjective: * Chief Complaints: * * Medical History: Objective: * Vitals: Assessment: * Assessment: 1. C hronic kidney disease, stage 3a - N18.31 (Primary) 2 . E ssential (primary) hypertension - I10 3 . H yperlipidemia, unspecified - E78.5 ?4. S econdary hyperparathyroidism, not elsewhere classified - E21.1 Plan: * Treatment: * Billing Information: * Visit Code: 92974 Office Visit, Est Pt., Level 3. * Procedure Codes: * Electronic signature of Barrett Kaufman MD on 05/24/2025 at 07:29 AM CDT Sign off status: Pending * Provider: Trisha KAUFMAN M.D Date: 09/30/2023 Generated for Melissa hamm/Avelina/Janet on: 0 05/24/2025 07:29 AM CDT
--- OUTSIDE RECORDS SUMMARY | 2025-01-08 09:00 | XMS_ITS ---
Author Organization [facility] Address [address] [facility] [address] [facility] [address] [place] [address] Care Team Providers Care Nursing Education Specialist Name Role Phone Trinity Kaufmanhit Unavailable [phone] Problems Problem Type SNOMED Code ICD Code Onset Dates Problem Status W/U Status Risk Notes Problem Anemia (052961942) Anemia, unspecified (D64.9) Active confirmed Encounters Encounter Location Date Provider Diagnosis [place] [facility] [address] [facility] [address] [place] [address] 01/08/2025 Paradise Kaufman Chronic kidney disease, stage 3a N18.31 ; Essential (primary) hypertension I10 ; Hyperlipidemia, unspecified E78.5 and Anemia, unspecified D64.9 Assessments Encounter Date Diagnosis (ICD Code) Assessment Notes Treatment Notes Treatment Clinical Notes Section Notes 01/08/2025 Chronic kidney disease, stage 3a (ICD-10 - N18.31) 01/08/2025 Essential (primary) hypertension (ICD-10 - I10) 01/08/2025 Hyperlipidemia, unspecified (ICD-10 - E78.5) 01/08/2025 Anemia, unspecified (ICD-10 - D64.9) Plan Of Treatment No Information Progress Notes * CELIA JUANEDOB:1955 (70 yo F)Acc No.[id number]:01/08/2025 Progress Notes Patient: GEORGE HA Provider: Trisha KAUFMAN M.D :1955 A ge:69 Y S ex:Female Date:01/08/2025 Address:[address] Subjective: * Chief Complaints: * * Medical History: Objective: * Vitals: Assessment: * Assessment: 1. C hronic kidney disease, stage 3a - N18.31 (Primary) 2 . E ssential (primary) hypertension - I10 3 . H yperlipidemia, unspecified - E78.5 ?4. A nemia, unspecified - D64.9 Plan: * Treatment: * Billing Information: * Visit Code: 93754 Office Visit, Est Pt., Level 3. * Procedure Codes: * Electronic signature of Barrett Kaufman MD on 05/24/2025 at 07:28 AM CDT Sign off status: Pending * Provider: Trisha KAUFMAN M.D Date: 0 01/08/2025 Generated for Melissa hamm/Avelina/Janet on: 0 05/24/2025 07:28 AM CDT
--- OUTSIDE RECORDS SUMMARY | 2025-05-07 09:00 | XMS_ITS ---
Author Organization [facility] Address [address] [facility] [address] [facility] [address] [place] [address] Care Team Providers Care Editor House Organ Name Role Phone Baldomero Paradise Unavailable [phone] REASON FOR VISIT pt is out of town and she will call back to another appt Encounters Encounter Location Date Provider Diagnosis [place] [facility] [address] [facility] [address] [place] [address] 05/07/2025 Paradise Kaufman Plan Of Treatment No Information Progress Notes * JUAN YANGEDOB:1955 (70 yo F)Acc No.[id number]:05/07/2025 Progress Notes Patient: GEORGE HA Provider: Trisha KAUFMAN M.D :1955 A ge:70 Y S ex:Female Date:05/07/2025 Address:[address] Subjective: * Chief Complaints: * 1 . Pt is out of town and she will call back to another appt. * Medical History: Objective: * Vitals: Assessment: Plan: * Treatment: * Billing Information: * Visit Code: * Procedure Codes: * Electronic signature of Barrett Kaufman MD on 05/24/2025 at 07:29 AM CDT Sign off status: Pending * Provider: Trisha KAUFMAN M.D Date: 05/07/2025 Generated for Melissa hamm/Avelina/eTivettsmitting on: 05/24/2025 07:29 AM CDT
--- OUTSIDE RECORDS SUMMARY | 2025-05-24 07:29 | XMS_ITS | Clinical Summary ---
Author Organization [facility] Address [address] [place] [phone] Phone Care Team Providers Care Rn Home Health Name Role Phone Unavailable Primary Care Provider [...] on file Legal Sex Female 8:45 AM [facility] Gender Identity Not on file Sexual Orientation [...]
--- OUTSIDE RECORDS SUMMARY | 2025-05-24 07:29 | XMS_ITS | Clinical Summary ---
Author Organization [facility] Janneth reyes [facility] Address [address] [address] Care Team Providers Care Center Rep Name Role Phone Unavailable Primary Care Provider [...] on file Legal Sex Female 12:03 PM CANVAS WORKER Gender Identity Not on file Sexual Orientation Not on file Last Filed Vital Signs Vital Sign Reading Time Taken Comments Blood Pressure 130/80 11/21/2024 10:04 AM CANVAS WORKER Pulse 67 11/21/2024 9:59 AM CANVAS WORKER Temperature 35.5 C (95.9 F) 11/21/2024 9:59 AM CANVAS WORKER Respiratory Rate 16 11/21/2024 9:59 AM CANVAS WORKER Oxygen Saturation 97% 11/21/2024 9:59 AM CANVAS WORKER Inhaled Oxygen Concentration - - Weight 122.4 kg (269 lb 12.8 oz) 11/21/2024 9:59 AM CANVAS WORKER Height 172.7 cm (5' 8) 11/21/2024 9:59 AM CANVAS WORKER Body Mass Index 41.02 11/21/2024 9:59 AM CANVAS WORKER Plan of Treatment Health Maintenance Due Date [...]
--- OUTSIDE RECORDS SUMMARY | 2025-05-24 07:29 | XMS_ITS | Patient Health Record ---
Author Organization [facility] Address [address] [place] [address] Care Team Providers Care Prizer Hand Name Role Phone Paradise Alexandre Unavailable [phone] Reason For Referral No Information Problems Problem Type SNOMED Code ICD Code Onset Dates Problem Status W/U Status Risk Notes Problem Anemia (357600074) Anemia, unspecified (D64.9) Active confirmed Problem Secondary hyperparathyroidism (85999998) Secondary hyperparathyroi dism, not elsewhere classified (E21.1) Active confirmed Problem Hyperlipidemia (86730643) Hyperlipidemia, unspecified (E78.5) Active confirmed Problem Essential hypertensi on (14158167) Essential (primary) hypertension (I10) Active confirmed Problem Acquired renal cysti c disease (267566107) Cyst of kidney, acquired (N28.1) Active confirmed Problem Chronic kidney disea se stage 3A (disorder) (436128894) Chronic kidney disease, stage 3a (N18.31) Active confirmed Encounters Encounter Location Date Provider Diagnosis [facility] [place] [facility] [address] [place] [id number] 07/31/2024 Paradise Baldomero Chronic kidney disease, stage 3a N18.31 ; Essential (primary) hypertension I10 ; Hyperlipidemia, unspecified E78.5 and Secondary hyperparathyroidism, not elsewhere classified E21.1 [place] [facility] [address] [facility] [address] [place] [address] 01/08/2025 Paradise Baldomero Chronic kidney disease, stage 3a N18.31 ; Essential (primary) hypertension I10 ; Hyperlipidemia, unspecified E78.5 and Anemia, unspecified D64.9 Assessments Encounter Date Diagnosis (ICD Code) Assessment Notes Treatment Notes Treatment Clinical Notes Section Notes 07/31/2024 Chronic kidney disease, stage 3a (ICD-10 - N18.31) 01/08/2025 Chronic kidney disease, stage 3a (ICD-10 - N18.31) 01/08/2025 Essential (primary) hypertension (ICD-10 - I10) 07/31/2024 Essential (primary) hypertension (ICD-10 - I10) 07/31/2024 Hyperlipidemia, unspecified (ICD-10 - E78.5) 01/08/2025 Hyperlipidemia, unspecified (ICD-10 - E78.5) 01/08/2025 Anemia, unspecified (ICD-10 - D64.9) 07/31/2024 Secondary hyperparathyroidi sm, not elsewhere classified (ICD-10 - E21.1) Plan Of Treatment No Information
--- OUTSIDE RECORDS SUMMARY | 2025-05-24 07:29 | XMS_ITS | Clinical Summary ---
Author Organization [facility] [employer] Address [address] [place] [address] Care Team Providers Care Binder Operator Name Role Phone Thomas Eduardo MD Primary Care Provider [phone] Source Comments [facility] [employer],non-[facility] Affiliates and Associated Physician Practices is amultiple site organization consisting of ambulatory clinics and hospital sitesin [place], [place], [place] and [place]. This disclosure is being madepursuant to the Care Everywhere program and may not contain all information available regarding this patient. Last updated 18.[facility] [employer] Social History Tobacco Use Types Packs/Day Years Used Date Smoking Tobacco: Never Assessed Comments Unknown Sex and Gender Information Value Date Recorded Sex Assigned at Not on file Legal Sex Female 4:18 PM TUTOR COORDINATOR Gender Identity Not on file Sexual Orientation Not on file Last Filed Vital Signs Vital Sign Reading Time Taken Comments Blood Pressure 137/82 08/19/2016 10:40 AM TUTOR COORDINATOR Pulse 88 08/19/2016 10:40 AM TUTOR COORDINATOR Temperature 37.1 C (98.7 F) 09/04/2015 9:46 AM TUTOR COORDINATOR Respiratory Rate 16 08/19/2016 10:40 AM TUTOR COORDINATOR Oxygen Saturation - - Inhaled Oxygen Concentration - - Weight 115.7 kg (255 lb) 11/05/2016 2:23 PM TUTOR COORDINATOR Height 172.7 cm (5' 8) 11/05/2016 2:23 PM TUTOR COORDINATOR Body Mass Index 38.77 11/05/2016 2:23 PM TUTOR COORDINATOR Plan of Treatment Health Maintenance Due Date [...] 2006 ZOSTER VACCINE (1 of 2) 2006 DEPRESSION SCREENING 09/20/2024 COVID-19 VACCINE (1 - 2023-2 5 season) 2025 INFLUENZA VACCINE (#1) 2025 Respiratory Syncytial Virus [...] patient's age to complete this topic Insurance [facility] Care Teams Binder Operator Relationship Specialty Start Date End Date Thomas Eduardo MD [address] [place] [address] PCP - General Family Medicine 11/04/16
--- OUTSIDE RECORDS SUMMARY | 2025-05-24 07:29 | XMS_ITS | Clinical Summary ---
Author Organization [facility] Address [facility] [place] [address] Care Team Providers Care Nut Dehydrator Operator Name Role Phone Unavailable Primary Care [...] 2006 Dexa Scan (General) 2021 COVID-19 Vaccine ( - 2023-2 5 season) 2025 RSV Immunization or 60+ [...]
--- OUTSIDE RECORDS SUMMARY | 2025-05-24 07:30 | XMS_ITS | Encounter Summary ---
Author Organization [facility] Address [address] [place] [address] Phone Care Team Providers Care Distribution Systems Superintendent Name Role Phone Thomas Eduardo MD Primary Care Provider [phone] Encounter Details Date Type Department Care Team [...] on file Legal Sex Female 12:29 AM QUALITY COMPLIANCE COORDINATOR Gender Identity Not on file Sexual [...] on filedocumented in this encounter Care Teams Distribution Systems Superintendent Relationship Specialty Start Date End Date Thomas Eduardo MD PCP - General 02/10/18 documented as of this encounter
--- OUTSIDE RECORDS SUMMARY | 2025-05-24 07:30 | XMS_ITS | Clinical Summary ---
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 Gender Identity Not on file Sexual Orientation [...] (#1) 2025 Medical Devices Implanted Type Area Brick Setter Operator Device Identifier Shelf Expiration Date Model / Serial / Lot [employer] 6191-1-010 Simplex P Radiopaque Full Dose Cement Bone Sterile - [id number] Implanted:Qty: 1 on 11/25/2018 by Jose Gant MD at [facility] Left: Knee [employer] 02/17/2021 6191-1-010 / / [id number] [employer] 6191-1-010 Simplex P Radiopaque Full Dose Cement Bone Sterile - [id number] Implanted:Qty: 1 on 11/25/2018 by Jose Gant MD at [facility] Left: Knee [employer] 02/17/2021 6191-1-010 / / [id number] [employer] [id number] Attune Cemented Posterior Stabilize Knee Left 6 Narrow Component - [id number] Implanted:Qty: 1 on 11/25/2018 by Jose Gant MD at [facility] Left: Knee [employer] [id number] 09/19/2028 [id number] / / [id number] Attune Cement Revision Rotate Platform Knee 6 Baseplate Tibial - [id number] Implanted:Qty: 1 on 11/25/2018 by Jose Gant MD at [facility] Left: Knee [employer] [id number] 01/18/2028 [id number] / / [id number] [employer] [id number] Attune 35mm Medialize Dome Component Patellar - [id number] Implanted:Qty: 1 on 11/25/2018 by Jose Gant MD at [facility] Left: Patella [employer] [id number] 07/20/2023 [id number] / / [id number] [employer] [id number] Attune 12mm Posterior Stabilize Rotate Platform Knee 6 Insert - [id number] Implanted:Qty: 1 on 11/25/2018 by Jose Gant MD at [facility] Left: Patella [employer] [id number] 05/20/2019 [id number] / / [id number] [employer] [id number] Attune 35mm Medialize Dome Component Patellar - [id number] Implanted:Qty: 1 on 06/06/2019 by Jsoe Gant MD at [facility] Right: Patella [employer] [id number] 03/19/2024 [id number] / / [id number] [employer] [id number] Attune 8mm Cruciate Retaining Rotate Platform Knee 6 Insert - [id number] Implanted:Qty: 1 on 06/06/2019 by Jose Gant MD at [facility] Right: Knee [employer] [id number] 01/17/2023 [id number] / / [id number] [employer] 6191-1-010 Simplex P Radiopaque Full Dose Cement Bone Sterile - [id number] Implanted:Qty: 1 on 06/06/2019 by Jose Gant MD at [facility] Right: Patella [employer] 06/19/2021 6191-1-010 / / [id number] [employer] [id number] Attune Cruciate Retain Cementless Knee Right 6 Narrow Component - [id number] Implanted:Qty: 1 on 06/06/2019 by Jose Gant MD at [facility] Right: Knee [employer] [id number] 02/18/2028 [id number] / / [id number] [employer] [id number] Attune Cementless Rotate Platform Knee 6 Baseplate Tibial - [id number] Implanted:Qty: 1 on 06/06/2019 by Jose Gant MD at [facility] Right: Knee [employer] [id number] 04/19/2028 [id number] / / [id number] Insurance CIGNA AETNA MEDICARE [facility] CIGNA OPEN ACCESS AETNA MEDICARE GOLD Advance Directives For more information, please contact: [phone] * Full Code (Latest Code Status on File) Date Activated Date Inactivated Comments 06/06/2019 12:41 PM 06/07/2019 6:58 PM * Full Code Date Activated Date Inactivated Comments 11/25/2018 2:49 PM 11/26/2018 5:09 PM Care Teams Shirt Sewer Relationship Specialty Start Date End Date Thomas Eduardo MD PCP - General 02/10/18
--- NOTE | 2025-05-24 07:45 | ECHO_ITS ---
Patient Info Name: Eduin Olivera Age: 70 years : 1955 Gender: Female Ht: 68 in Wt: 265 lbs BSA: 2.46 m2 HR: 62 bpm BP: 172 / 109 mmHg Technical Quality: Good Exam Date: 05/24/2025 8:12 AM Patient Status: O Admit Date: 05/24/2025 Exam Type: CA echo doppler color flow Complete two-dimensional, color flow and Doppler transthoracic echocardiogram is performed. Change Coordinator: Radha Phan Attending Provider: Marlys Romero Summary 1. Complete two-dimensional, color flow and Doppler transthoracic echocardiogram is performed. 2. Left ventricular chamber dimension is normal. 3. Left ventricular systolic function is normal, estimated at 60-65. 4. There is mild concentric increased left ventricular wall thickness. 5. The left ventricular diastolic function is grade I diastolic dysfunction. 6. E/e' 6 is not elevated. 7. Left atrial chamber dimension is mildly enlarged. 8. There is mild aortic valve sclerosis. 9. There is mild aortic valve regurgitation. 10. The mitral valve has a mildly calcified annulus. 11. There is mild mitral valve regurgitation. 12. There is moderate to severe tricuspid valve regurgitation. 13. No pulmonary hypertension, estimated pulmonary arterial systolic pressure is 36 mmHg. 14. There is trace pulmonic regurgitation. Left Ventricle E/e' 6 is not elevated. Left ventricular chamber dimension is normal. Left ventricular systolic function is normal, estimated at 60-65. There is mild concentric increased left ventricular wall thickness. The left ventricular diastolic function is grade I diastolic dysfunction. Right Ventricle Right ventricular chamber dimension is normal. Right ventricular systolic function is normal and with normal TAPSE 2.1 cm. Left Atria Left atrial chamber dimension is mildly enlarged. Right Atria Right atrial chamber dimension is normal. Aortic Valve The aortic valve is trileaflet. There is mild aortic valve sclerosis. There is no aortic valve stenosis. There is mild aortic valve regurgitation. Pulmonic Valve There is trace pulmonic regurgitation. Mitral Valve The mitral valve has a mildly calcified annulus. There is no mitral valve stenosis. There is mild mitral valve regurgitation. Tricuspid Valve There is moderate to severe tricuspid valve regurgitation. No pulmonary hypertension, estimated pulmonary arterial systolic pressure is 36 mmHg. Pericardium/Pleural There is no pericardial effusion. Inferior Vena Cava Normal inferior vena cava with >50% collapse upon inspiration consistent with normal right atrial pressure, 5 mmHg. Aorta The aortic root size at the sinus of Valsalva is normal. Left Ventricular Outflow Tract Name Value Normal LVOT 2D LVOT Diameter 2.0 cm LVOT Doppler LVOT Peak Velocity 115 cm/s LVOT Peak Gradient 5 mmHg LVOT Mean Gradient 3 mmHg LVOT VTI 30 cm LVOT Stroke Volume 91 ml LVOT CO 5.6 l/min LVOT CI 2.3 l/min/m2 Pulmonic Valve Name Value Normal RVOT Doppler RVOT Peak Velocity 75 cm/s RVOT Peak Gradient 2 mmHg PV Doppler PV Peak Velocity 88 cm/s PV Peak Gradient 3 mmHg Mitral Valve Name Value Normal MV Diastolic Function MV E Peak Velocity 68 cm/s MV A Peak Velocity 77 cm/s MV E/A 0.9 MV Decel Time (PW) 270 ms MV Annular TDI MV E/e' (Septal) 7.5 MV E/e' (Lateral) 6.2 MV E/e' (Average) 6.8 Tricuspid Valve Name Value Normal TV Regurgitation Doppler TR Peak Velocity 279 cm/s TR Peak Gradient 31 mmHg Estimated PAP/RSVP RA Pressure 5 mmHg <=5 PA Systolic Pressure 36 mmHg <36 RV Systolic Pressure 36 mmHg <36 Aortic Valve Name Value Normal AV Doppler AV Peak Velocity 158 cm/s AV Peak Gradient 10 mmHg AV Area (Cont Eq Neo) 2.2 cm2 AV DI (Neo) 0.73 AV Regurgitation 2D LVOT Area 3.0 cm2 Ventricles Name Value Normal LV Dimensions 2D/MM IVS Diastolic Thickness (2D) 1.2 cm 0.6-1.0 LVID Diastole (2D) 4.8 cm 3.8-5.2 LVIW Diastolic Thickness (2D) 1.0 cm 0.6-0.9 LVID Systole (2D) 3.0 cm 2.2-3.5 LVOT Diameter 2.0 cm LV Mass (2D Cubed) 194.47 g 67.00-162.00 LV Mass Index (2D Cubed) 79 g/m2 43-95 Relative Wall Thickness (2D) 0.42 <=0.42 LV Fractional Shortening/Ejection Fraction 2D/MM LV Fractional Shortening (2D) 37 % 27-45 LV EF (2D Teichholz) 67 % LV Diastolic Volume (4C MOD) 122 ml LV EF (4C MOD) 59 % LV Diastolic Volume (2C MOD) 114 ml LV EF (2C MOD) 63 % LV Diastolic Volume (BP MOD) 118 ml 46-106 LV Diastolic Volume Index (BP MOD) 48 ml/m2 29-61 LV Systolic Volume (BP MOD) 48 ml 14-42 LV Systolic Volume Index (BP MOD) 19 ml/m2 8-24 LV EF (BP MOD) 59 % 54-74 LV Diastolic Length (4C) 8.1 cm LV Systolic Length (4C) 7.2 cm LV Stroke Volume (4C MOD) 71 ml Atria Name Value Normal LA Dimensions LA Volume (4C A-L) 51 ml LA Volume (BP A-L) 66 ml RA Dimensions RA Systolic Major [place] Length (4C) 6.2 cm 2.2-2.8 RA Area (4C) 15.6 cm2 <=18.0 Report Signatures
--- NOTE | 2025-05-24 07:45 | ECG_ITS ---
Test Date: 2025-05-24 07:59:08 Measurements Intervals [place] Rate: 63 P: 36 UT: 158 QRS: -8 QRSD: 90 T: -8 QT: 396 QTc: 407 Interpretive Statements SINUS RHYTHM WITH OCCASIONAL SUPRAVENTRICULAR PREMATURE COMPLEXES LEFT VENTRICULAR HYPERTROPHY AND ST-T WAVE CHANGES POSSIBLE SEPTAL MYOCARDIAL INFARCTION , OF INDETERMINATE AGE [30 ms Q WAVE IN V1/V2] No previous ECG available for comparison Electronically Signed On 05-24-2025 11:38:58 CDT by Eduardo Iverson M.D.
[2025-05-24 09:13] LABS: Thyroid Stimulating Hormone 3.800 uIU/mL (0.465-4.680)
== END 2025-05-24 07:26 | disposition home or self-care (01) ==
PROVIDERS: PCP Family Medicine; Visit Provider Physician Assistant Medical
DX: R25.2 Cramp and spasm (principal); N28.1 Cyst of kidney, acquired; D64.9 Anemia, unspecified; R79.89 Other specified abnormal findings of blood chemistry; R60.9 Edema, unspecified; I12.9 Hypertensive chronic kidney disease with stage 1 through stage 4 chronic kidney disease, or unspecified chronic kidney disease; N18.9 Chronic kidney disease, unspecified; R94.31 Abnormal electrocardiogram [ECG] [EKG]
CPT/HCPCS: 36415; 84443; 93005; 93306